=== PATIENT | male | born 1985 | race Caucasian/White ===

== ENCOUNTER 2019-03-13 19:37 | Inpatient (IN) | payer OTHER ==
[2019-03-13] MEDS ORDERED: oxyCODONE/Acetamin 5/325 MG* TAB PO ONE (19:54)
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
[2019-03-13] MEDS ORDERED: Ondansetron INJ* 2 MG/ML VIAL IV PRN (20:57)
[2019-03-13] MEDS ORDERED: diPHENhydraMINE IV* 50 MG/ML 1 ml VIAL (BENADRYL) IV PRN (20:57)
[2019-03-13] MEDS ORDERED: oxyCODONE/Acetamin 5/325 MG* TAB PO PRN (20:57)
[2019-03-13] MEDS ORDERED: Ondansetron ODT TAB* 4 MG PO PRN (20:57)
[2019-03-13] MEDS ORDERED: Lactated Ringers 1000 ML Bag* 1,000 ML IV SCH (21:00)
[2019-03-13] MEDS ORDERED: HYDROmorphone INJ* 0.5 MG/0.5 ML SYRINGE IV SLOW PU PRN (21:09)
[2019-03-13] MEDS ORDERED: Bisacodyl SUPP* 10 MG SUPP PR PRN (21:13)
[2019-03-13] MEDS ORDERED: Polyethylene Glycol 3350* 17 GM PACKET PO PRN (21:13)
[2019-03-13] MEDS ORDERED: Magnesium Hydroxide LIQ* 30 ML UDC PO PRN (21:13)
[2019-03-13] MEDS ORDERED: NS 0.9% 1000 ML** 2,000 ML IV ONE (21:59)
[2019-03-13] MEDS ORDERED: Ondansetron INJ* 2 MG/ML VIAL IV ONE (21:59)
[2019-03-13] MEDS ORDERED: HYDROmorphone INJ1* 1 MG/ML SYRINGE ONE (23:02)
[2019-03-14] MEDS: oxyCODONE/Acetamin 5/325 MG* TAB PO PRN ×3 (00:01→17:34)
[2019-03-14] MEDS: HYDROmorphone INJ1* 1 MG/ML SYRINGE IV SLOW PU PRN ×3 (02:47→09:39)
[2019-03-14] MEDS ORDERED: ceFAZolin 2 GM PREMIX in ORs 2 GM/50 ML BAG IVPB ONE ×2 (08:00→09:00)
[2019-03-14] MEDS ORDERED: Docusate CAP* 100 MG PO SCH (09:00)
[2019-03-14] MEDS ORDERED: Magnesium Hydroxide LIQ* 30 ML UDC PO SCH (09:00)
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
[2019-03-14] MEDS ORDERED: ceFAZolin 2 GM in NS PREMIX(*) 2 GM/100 ML BAG IVPB ONE (10:27)
[2019-03-14] MEDS ORDERED: Midazolam* 1 MG/ML 5 ML VIAL (5 MG) ONE (10:44)
[2019-03-14] MEDS ORDERED: fentaNYL* 50 MCG/ML 5 ML VIAL (250 MCG VIAL) ONE (10:44)
[2019-03-14] MEDS ORDERED: Propofol* 10 MG/ML 20 ML BTL ONE (10:44)
[2019-03-14] MEDS ORDERED: Rocuronium* 10 MG/ML VIAL ONE (10:46)
[2019-03-14] MEDS ORDERED: Dexamethasone IV* 4 MG/ML 1 ML (4 MG) ONE (11:37)
[2019-03-14] MEDS ORDERED: fentaNYL* 50 MCG/ML 2 ML VIAL (100 MCG VIAL) ONE ×3 (13:30→14:58)
[2019-03-14] MEDS ORDERED: Ondansetron INJ* 2 MG/ML VIAL ONE (13:31)
[2019-03-14] MEDS ORDERED: Ketorolac INJ* 30 MG/ML 1 ML VIAL ONE (13:32)
[2019-03-14] MEDS ORDERED: Scopolamine 1.5 mg* PATCH TRANSDERM PRN (13:35)
[2019-03-14] MEDS ORDERED: Ondansetron INJ* 2 MG/ML VIAL IV PRN ×2 (13:35→14:15)
[2019-03-14] MEDS ORDERED: oxyCODONE TAB* 5 MG TAB PO PRN ×2 (13:35→14:15)
[2019-03-14] MEDS ORDERED: DiMENhydriNATE IV* 50 MG/ML VIAL IV PUSH PRN (13:35)
[2019-03-14] MEDS ORDERED: HYDROmorphone INJ1* 1 MG/ML SYRINGE IV PRN (13:35)
[2019-03-14] MEDS ORDERED: Naloxone* 0.4 MG/ML 1 ML VIAL IV PRN (13:35)
[2019-03-14] MEDS ORDERED: Ropivacaine 0.2% * 2 MG/ML VIAL ONE ×2 (13:36→13:55)
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
[2019-03-14] MEDS ORDERED: Magnesium Hydroxide LIQ* 30 ML UDC PO PRN (14:15)
[2019-03-14] MEDS ORDERED: Ondansetron ODT TAB* 4 MG PO PRN (14:15)
[2019-03-14] MEDS ORDERED: diPHENhydraMINE IV* 50 MG/ML 1 ml VIAL (BENADRYL) IV PRN (14:15)
[2019-03-14] MEDS ORDERED: Polyethylene Glycol 3350* 17 GM PACKET PO PRN (14:15)
[2019-03-14] MEDS ORDERED: traMADol TAB* 50 MG PO PRN (14:15)
[2019-03-14] MEDS ORDERED: Bisacodyl SUPP* 10 MG SUPP PR PRN (14:15)
[2019-03-14] MEDS ORDERED: oxyCODONE/Acetamin 5/325 MG* TAB PO PRN (14:15)
[2019-03-14] MEDS ORDERED: Cyclobenzaprine TAB* 10 MG PO PRN (14:15)
[2019-03-14] MEDS ORDERED: traZODone TAB* 50 MG TAB PO PRN (14:15)
[2019-03-14] MEDS ORDERED: diPHENhydraMINE PO* 25 MG PO PRN (14:15)
[2019-03-14] MEDS ORDERED: Morphine 4 MG/ML VIAL (1 ml) 4 MG/ML VIAL IV PRN (14:15)
[2019-03-14] MEDS: fentaNYL* 50 MCG/ML 2 ML VIAL (100 MCG VIAL) IV PRN ×2 (14:59→15:01)
[2019-03-14] MEDS ORDERED: Famotidine TAB* 20 MG PO PRN (15:19)
[2019-03-14] MEDS: Lactated Ringers 1000 ML Bag* 1,000 ML IV SCH (16:26)
[2019-03-14] MEDS: Acetaminophen TAB* 325 MG PO SCH ×2 (17:20→23:10)
[2019-03-14] MEDS: ceFAZolin 1 GM ADVAN(*) 1 GM in NS 0.9% 50 ML* 50 ML IVPB SCH (19:52)
[2019-03-14] MEDS: Magnesium Hydroxide LIQ* 30 ML UDC PO SCH (19:55)
[2019-03-14] MEDS: Docusate CAP* 100 MG PO SCH (19:55)
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
[2019-03-15] MEDS: oxyCODONE/Acetamin 5/325 MG* TAB PO PRN ×3 (02:41→11:38)
[2019-03-15] MEDS: Lactated Ringers 1000 ML Bag* 1,000 ML IV SCH (02:43)
[2019-03-15] MEDS: ceFAZolin 1 GM ADVAN(*) 1 GM in NS 0.9% 50 ML* 50 ML IVPB SCH ×2 (04:13→11:42)
[2019-03-15] MEDS: Acetaminophen TAB* 325 MG PO SCH (05:32)
--- NOTE | 2019-03-15 07:51 | PN ---
Progress Note - Progress Note Date of Service: 03/15/19 SOAP: Subjective: []Patient was seen at bedside. Pain is reported as tolerable at a 5/10 this morning. Denies fever, chills, CP, SOB. Objective: [] Gen: NAD, laying comfortably in bed LLE: Splint CDI, able to wiggle exposed toes, no pain with passive stretch of toes. Toes warm and capillary refill less than two seconds distally. No erythema proximal or distal to splint Assessment: []L tibia IM nail POD 1 Dr Jackson Plan: []NWB LLE Keep splint CDI Plan for DC home if meets goals with PT and pain remains well controlled DVT prophy: early mobilization, SCDs Vital Signs Temp 98.1 F 03/15/19 07:21 Pulse 68 03/15/19 07:21 Resp 16 03/15/19 07:33 BP 113/67 03/15/19 07:21 Pulse Ox 99 03/15/19 07:21 Intake & Output 03/14/19 03/15/19 03/15/19 18:59 06:59 18:59 Intake Total 1400 466 Output Total 150 2425 Balance 1250 -2425 466 Intake: IV Fluids 1400 466 LR 1400 466 Output: Urine 2425 Estimated Blood Loss 150
[2019-03-15] MEDS: Docusate CAP* 100 MG PO SCH (08:55)
[2019-03-15] MEDS: Magnesium Hydroxide LIQ* 30 ML UDC PO SCH (08:56)
[2019-03-15 11:16] VITALS: BP 129/72
[2019-03-15] MEDS ORDERED: Enoxaparin(*) 40 MG/0.4 ML SYR SUBCUT SCH (12:00)
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
[2019-03-17] MEDS ORDERED: Scopolamine PATCH Remove* 1 NOTE MISC PATCH OFF ONE (13:36)
== END 2019-03-15 13:25 | disposition home or self-care (01) | DRG 494 ==
LOC: ED 19:37 → SSU 20:57
PROVIDERS: ADMIT Orthopaedic Surgery; ATTEND Orthopaedic Surgery
PROC: 0QSH06Z Reposition Left Tibia with Intramedullary Internal Fixation Device, Open Approach (ICD-10-PCS; principal; 2019-03-14 10:30)
DX: S82.302A Unspecified fracture of lower end of left tibia, initial encounter for closed fracture (principal); F43.10 Post-traumatic stress disorder, unspecified; S82.832A Other fracture of upper and lower end of left fibula, initial encounter for closed fracture; V22.4XXA Motorcycle driver injured in collision with two- or three-wheeled motor vehicle in traffic accident, initial encounter; Y92.488 Other paved roadways as the place of occurrence of the external cause; Z72.0 Tobacco use
CPT/HCPCS: 76000; 99283; A9270-GY; C1713; C1776; J0690; J1100; J1170; J1885; J2250; J2405; J2704; J2795; J3010